=== PATIENT | female | born 1950 | race Caucasian/White ===

== ENCOUNTER → 2019-07-02 | Outpatient (CLI) | payer MEDICARE ==
[~2019-07-02] MED LIST: ACE500 PO; AZI250 PO; CEFU250 PO; CEPH-13 PO; IBU600 PO; IBUP-1618 PO; MVI; ONDA4TAB PO; THERA M PLUS1 UDTA1 PO
--- NOTE | 2019-07-02 17:01 | RADIOLOGY IMAGING REPORT ---
FACILITY: [facility] PATIENT NAME: Allison Saul : 1950 MR: [id number] V: [id number] EXAM DATE: ORDERING PHYSICIAN: CALOS SALEEM TECHNOLOGIST: Location: [facility] Patient: Allison Saul : 1950 Visit/Account:[id number] Date of Sevice: 07/02/2019 Exam type: CHEST PA LAT History: Abnormal lung sounds. Past smoking history Comparison: May 31, 2013. Findings: There is hyperinflation of the lung arriaga. Previously noted nodular density projecting over the rig ht midlung field is less evident. There is no evidence of acute appearing infiltrates, pleural effus ions or pulmonary edema. The cardiac silhouette is normal in size. There is a scoliosis of the thor acic spine with spondylotic changes. IMPRESSION: 1. Hyperinflation of the lung arriaga Previously noted nodular density over the right midlung field is less apparent. Given the clinical h istory of abnormal lung sounds with a prior smoking history CT of the chest could be considered Report Dictated By: Lety Flores MD at 07/02/2019 4:50 PM Report E-Signed By: Lety Flores MD at 07/02/2019 4:53 PM WSN:[email or web address]
== END ==
LOC: RAD 15:40
PROVIDERS: ATTEND Family Medicine
DX: R91.8 Other nonspecific abnormal finding of lung field (principal)
CPT/HCPCS: 71046